=== PATIENT | female | born 1945 | race Caucasian/White ===

== ENCOUNTER → 2017-01-07 | Outpatient (CLI) | payer MEDICARE | LOC: MC.RAD 09:20 | DX: Z12.31 Encounter for screening mammogram for malignant neoplasm of breast (principal) ==

== ENCOUNTER → 2017-05-20 | Outpatient (CLI) | payer MEDICARE | LOC: COL.VAS 09:20 | DX: I08.2 Rheumatic disorders of both aortic and tricuspid valves (principal); I31.3 Pericardial effusion (noninflammatory); R06.00 Dyspnea, unspecified; R07.9 Chest pain, unspecified ==

== ENCOUNTER → 2018-01-09 | Outpatient (CLI) | payer MEDICARE ==
[~2018-01-09] MED LIST: ASPIRIN E.C. 8181 MG PO; DESYREL 100MG100 MG PO; DICLOFENAC SOD2.5 ML TOP; EPA FISH OIL1 SGL; FIORICET 325 MG1 TA1 PO; FOSAMAX 70MG TA70 MG PO; LEXAPRO 10MG10 MG PO; MOBIC15 MG PO; NATURAL E400 IU PO; NITROSTAT0.4 MG/TAB SL; OCUVITE1 TA1 PO; TOPROL XL 25MG25 MG PO; VITAMIN B COMPL1 SGL PO; VITAMIN D 400400 IU PO; WELCHOL 625MG625 MG PO; XANAX 0.5MG0.5 MG PO; ZANTAC 150MG T150 MG PO; ZYRTEC 10MG10 MG PO
== END ==
LOC: MC.RAD 09:34
DX: Z12.31 Encounter for screening mammogram for malignant neoplasm of breast (principal)

== ENCOUNTER 2018-08-04 07:38 | Outpatient (CLI) | payer MEDICARE ==
[~2018-08-04] VITALS: Ht 172.7 cm; Wt 71.8 kg
[2018-08-04 08:40] VITALS: BP 118/62; PULSE 68; TEMP 98.2
[2018-08-04] MEDS ORDERED: CLEOCIN HCL300 MG PO (09:22)
--- NOTE | 2018-08-04 09:49 | NUR ---
Procedure complete. Discharge instructions given.
[2018-08-04 09:50] VITALS: BP 120/63; PULSE 62; TEMP 98
--- NOTE | 2018-08-04 09:55 | NUR ---
Transferred to private car by brandon
== END 2018-08-04 09:56 | disposition home or self-care (01) ==
LOC: COL.CAR 07:38
DX: I47.1 Supraventricular tachycardia (principal); Z82.49 Family history of ischemic heart disease and other diseases of the circulatory system; E78.5 Hyperlipidemia, unspecified; J44.9 Chronic obstructive pulmonary disease, unspecified; I27.20 Pulmonary hypertension, unspecified; K21.9 Gastro-esophageal reflux disease without esophagitis; J30.9 Allergic rhinitis, unspecified; F41.9 Anxiety disorder, unspecified; G43.909 Migraine, unspecified, not intractable, without status migrainosus; Z88.5 Allergy status to narcotic agent; Z88.1 Allergy status to other antibiotic agents; Z88.8 Allergy status to other drugs, medicaments and biological substances; Z88.0 Allergy status to penicillin; Z88.2 Allergy status to sulfonamides; Z88.7 Allergy status to serum and vaccine; Z91.040 Latex allergy status; Z79.82 Long term (current) use of aspirin

== ENCOUNTER → 2019-01-20 | Outpatient (CLI) | payer MEDICARE ==
[~2019-01-20] MED LIST changes: +CLEOCIN HCL300 MG PO
== END ==
LOC: MC.RAD 09:01
DX: Z12.31 Encounter for screening mammogram for malignant neoplasm of breast (principal)

== ENCOUNTER → 2020-01-25 | Outpatient (CLI) | payer MEDICARE | LOC: MC.RAD 09:59 | DX: Z12.31 Encounter for screening mammogram for malignant neoplasm of breast (principal); Z00.00 Encounter for general adult medical examination without abnormal findings ==

== ENCOUNTER 2020-11-02 07:52 | Day surgery (SDC) | payer MEDICARE, OTHER ==
[~2020-11-02] VITALS: Ht 172.8 cm; Wt 77.0 kg
[2020-11-02] VITALS (8 sets, daily range): BP systolic 115–154; BP diastolic 56–81; PULSE 64–72; TEMP 98.4
[~2020-11-02 07:52] MED LIST changes: -EPA FISH OIL1 SGL; +EPA FISH OIL1 SGL PO
[2020-11-02] MEDS ORDERED: PROAIR HFA0.09 MG/AC IH (08:40)
[2020-11-02] MEDS ORDERED: SINGULAIR 110 MG/TAB PO (08:41)
[2020-11-02] MEDS ORDERED: 00186-0370-20 IH (08:42)
--- NOTE | 2020-11-02 09:52 | NUR ---
SEE MERGE DOCUMENTATION FOR MEDICATION ADMINISTRATION TIMES AND INTRA/POST PROCEDURE SEDATION ASSESSMENTS.
--- NOTE | 2020-11-02 10:10 | NUR ---
Report from Boaz ALEJANDRA. Transferred from Shoe Worker by bed. Alert and oriented, denies pain and needs at this time. VSS
[2020-11-02] MEDS ORDERED: CLEOCIN HCL300 MG PO (11:13)
--- NOTE | 2020-11-02 11:33 | NUR ---
INT discontinued intact. Discharge instructions given
--- NOTE | 2020-11-02 11:40 | NUR ---
Transferred to private car by brandon
== END 2020-11-02 11:40 | disposition home or self-care (01) ==
LOC: COL.CAR 07:52
DX: I49.1 Atrial premature depolarization (principal); R00.2 Palpitations; J44.9 Chronic obstructive pulmonary disease, unspecified; K21.9 Gastro-esophageal reflux disease without esophagitis; E78.5 Hyperlipidemia, unspecified; G43.909 Migraine, unspecified, not intractable, without status migrainosus; I25.10 Atherosclerotic heart disease of native coronary artery without angina pectoris; I47.1 Supraventricular tachycardia; I27.20 Pulmonary hypertension, unspecified; E78.2 Mixed hyperlipidemia; F41.9 Anxiety disorder, unspecified; Z20.822 Contact with and (suspected) exposure to COVID-19; Z88.8 Allergy status to other drugs, medicaments and biological substances; Z88.5 Allergy status to narcotic agent; Z82.49 Family history of ischemic heart disease and other diseases of the circulatory system; Z88.1 Allergy status to other antibiotic agents; Z88.2 Allergy status to sulfonamides; Z91.040 Latex allergy status; Z79.82 Long term (current) use of aspirin; Z79.899 Other long term (current) drug therapy; Z80.9 Family history of malignant neoplasm, unspecified; Z45.09 Encounter for adjustment and management of other cardiac device; Z83.3 Family history of diabetes mellitus
CPT/HCPCS: C1764; J2250; J3010; J3370; J7050

== ENCOUNTER → 2021-02-02 | Outpatient (CLI) | payer MEDICARE ==
[~2021-02-02] MED LIST changes: +00186-0370-20 IH; +B COMPLEX #11 TA1 PO; +CAPACET 325 MG-1 CAP PO; +DICLOZOR1 EACH TP; +LEXAPRO20 MG PO; +NEXIUM 24HR20 M1 PO; +PROAIR HFA0.09 MG/AC IH; +SINGULAIR 110 MG/TAB PO; +TOPROL XL100 MG PO; +ZYRTEC5 MG PO; +[UNRECOGNIZED DRUG - OTHER] PO
== END ==
LOC: MC.RAD 10:13
DX: Z12.31 Encounter for screening mammogram for malignant neoplasm of breast (principal)

== ENCOUNTER 2021-05-25 05:13 | Inpatient (IN) | payer MEDICARE ==
[~2021-05-25] VITALS: Ht 175.3 cm; Wt 78.5 kg
[~2021-05-25 05:13] MED LIST changes: -B COMPLEX #11 TA1 PO; -CAPACET 325 MG-1 CAP PO; -DICLOZOR1 EACH TP; -LEXAPRO20 MG PO; -NEXIUM 24HR20 M1 PO; -TOPROL XL100 MG PO; -ZYRTEC5 MG PO; -[UNRECOGNIZED DRUG - OTHER] PO
[2021-05-25 05:29] LABS: BASO # 0.1 K/mm3 (0.0-0.2); BASO % 0.7 % (0.0-2.0); EOS # 0.3 K/mm3 (0.0-0.7); EOS % 4.2 % (0-4.0); GRAN # 4.5 K/mm3 (1.4-6.5); GRAN % 60.4 % (42.2-75.2); HEMATOCRIT 38.3 % (37.0-47.0); HEMOGLOBIN 12.6 g/dl (12.5-16.0); LYMPH # 1.9 K/mm3 (1.2-3.4); LYMPH % 25.8 % (20.0-51.0); MEAN CELL VOLUME 90 fl (80.0-100.0); MEAN CORPUSCULAR HEMOGLOBIN 30 pg (27.0-31.0); MEAN CORPUSCULAR HGB CONC 33 g/dl (33.0-37.0); MEAN PLATELET VOLUME 8.1 fl (7.4-10.4); MONO # 0.6 K/mm3 (0.1-0.6); MONO % 8.2 % (1.7-9.3); PLATELET COUNT 251 K/mm3 (130-400); RED BLOOD COUNT 4.24 M/mm3 (4.10-5.30); REDCELL DISTRIBUTION WIDTH-CV 12.7 % (11.5-14.5)
[2021-05-25 05:45] LABS: ALANINE AMINOTRANSFERASE 25 U/L (0-55); ALBUMIN 3.6 gm/dL (3.4-4.8); ALKALINE PHOSPHATASE 93 U/L (40-150); ANION GAP 8 mmol/L (7-16); AST,SGOT 20 U/L (5-34); BILIRUBIN,TOTAL 0.4 mg/dL (0.2-1.2); BLOOD UREA NITROGEN 13 mg/dL (10-20); CALCIUM 9.1 mg/dL (8.4-10.2); CARBON DIOXIDE 23 mmol/L (23-31); CHLORIDE 108 mmol/L (98-107); CREATINE KINASE 56 U/L (29-168); CREATININE, serum 0.75 mg/dL (0.57-1.11); GLUCOSE 104 mg/dL (70-99); POTASSIUM 4.2 mmol/L (3.5-4.5); SODIUM 139 mmol/L (136-145); TOTAL PROTEIN 6.8 gm/dL (6.2-8.1)
[2021-05-25 06:02] LABS: TROPONIN-I < 0.010 ng/mL (0.00-0.033)
[2021-05-25] MEDS ORDERED: TOPROL XL100 MG PO (06:39)
[2021-05-25] MEDS ORDERED: [UNRECOGNIZED DRUG - OTHER] PO (06:47)
[2021-05-25] MEDS ORDERED: NEXIUM 24HR20 M1 PO (06:48)
--- NOTE | 2021-05-25 16:54 | NUR ---
RECEIVED REPORT FROM [place] PETERS.
--- NOTE | 2021-05-25 19:12 | NUR ---
PT WAS ADMITTED TO UNIT, ORIENTED TO ROOM. ADMISSION INTAKE AND ASSESSMENT COMPLETED. PT DENIES ANY NEEDS. WILL CONTINUE TO MONITOR.
[2021-05-25 21:26] VITALS: BP 128/65; PULSE 66; TEMP 98.5
[2021-05-25] MEDS ORDERED: B COMPLEX #11 TA1 PO (22:08)
[2021-05-25] MEDS ORDERED: DICLOZOR1 EACH TP (22:13)
[2021-05-25] MEDS ORDERED: ZYRTEC5 MG PO (22:24)
--- NOTE | 2021-05-25 22:36 | NUR ---
AT 2230 THIS NURSE REVIEWED THE ALREADY COMPLETED MED REC FROM PREVIOUS SHIFT WITH PT. THIS NURSE AND PT REVIEWED ANY POSSIBLE DISCEPANCIES, THIS NURSE PLACED A COPY OF THE PT'S MED REC IN CHART; WHICH WAS LAST UPDATED FEBRUARY [id number].
--- NOTE | 2021-05-25 22:41 | NUR ---
AT ABOUT 1945 DR. RUEDA INPUT WRITTEN NOTES TO PT'S CHART, THIS NURSE REVIEWED AND VERBALIZED UNDERSTANDING. ALL ORDERS INPUT INTO COMPUTER. THIS NURSE WILL ENSURE TO RELAY TO DAYSHIFT FOREIGN COLLECTION CLERK OF AFOREMENTIONED.
[2021-05-25 23:13] VITALS: BP 130/69; PULSE 68; TEMP 98.5
[2021-05-26 03:10] VITALS: BP 137/68; PULSE 72; TEMP 98.9
[2021-05-26] MEDS ORDERED: CAPACET 325 MG-1 CAP PO (04:51)
[2021-05-26] MEDS ORDERED: WELCHOL 625MG625 MG PO (04:52)
[2021-05-26] MEDS ORDERED: LEXAPRO20 MG PO (04:52)
[2021-05-26] MEDS ORDERED: DESYREL 100MG100 MG PO (04:52)
[2021-05-26] MEDS ORDERED: MOBIC15 MG PO (04:53)
[2021-05-26] MEDS ORDERED: TOPROL XL100 MG PO (04:53)
--- NOTE | 2021-05-26 05:07 | NUR ---
PT HAD UNEVENTFUL NIGHT THIS SHIFT, GAIT REMAINS UNSTEADY, PT REMAINS COGNITIVELY AND VERBALLY COHERENT, A/OX4, 02 ROOM AIR. PT DENIES PAIN,N,V,D, CONSTIPATION. I&O NOTED AND RECORDED. PT REMAINS NPO OF 0000. POC DISCUSSED WITH PT AT BEGINNING OF SHIFT. PT VERBALIZES UNDERSTANDING. ALL NEEDS MET THIS NIGHT. CALL LIGHT WITHIN REACH.
[2021-05-26 08:00] VITALS: BP 144/74; PULSE 74; TEMP 98.8
[2021-05-26 13:05] VITALS: BP 155/73; PULSE 82; TEMP 98.9
[2021-05-26 13:17] LABS: CSF APPEARANCE CLEAR; CSF COLOR COLORLESS
[2021-05-26 13:18] LABS: CSF RBC < 1 /mm3 (0-0)
[2021-05-26 14:15] LABS: CSF MONONUCLEAR 92 % (70-100); CSF POLYMORPHONUCLEAR 8 % (0-6)
--- NOTE | 2021-05-26 15:10 | NUR ---
Nurse Staff [facility] met with patient to discuss discharge plan. Patient's friend, Tash is at bedside. Patient lives alone in [facility] and sees Dr. Peterson for primary care. Patient obtains medications from [facility] with no difficulties and does not use any DME. Patient is normally independent with ADLS and plans to return home upon discharge. MANJIT discussed Home Health services with patient who is interested in [facility]. Patient states she has completed [facility]PO[facility] which designates her friends, Sourav and Ani Diamond. Patient thinks Dr. Peterson's office has a copy of DPOA-HC. MANJIT contacted Elisa at [facility] and requested a copy. Elisa advised they have a copy and will fax it over. After intake, MANJIT was advised by RN that patient will be transferred to another hospital.
[2021-05-26 16:17] VITALS: BP 157/83; PULSE 81; TEMP 98
--- NOTE | 2021-05-26 17:41 | NUR ---
Patient ambulating in the room with cane, steady on feet. Has increased anxiety r/t information from the doctor. A&Ox4. Reports a headache. Bandaid to back, CDI. No further needs expressed. Call light within reach
[2021-05-26 19:15] VITALS: BP 167/80; PULSE 84; TEMP 98.2
[2021-05-26 23:24] VITALS: BP 148/76; PULSE 72; TEMP 98.7
[2021-05-27 04:07] VITALS: BP 136/74; PULSE 73; TEMP 98.2
--- NOTE | 2021-05-27 06:05 | NUR ---
PT HAD UNEVENTFUL NIGHT,NO CHANGES OVERNIGHT, ALL NEEDS MET AT THIS TIME. PT EXPRESSES NO ADDITIONAL NEEDS. CALL LIGHT WITHIN REACH.
[2021-05-27 07:02] LABS: BASO % 0.4 % (0.0-2.0); EOS % 0.5 % (0-4.0); GRAN # 6.1 K/mm3 (1.4-6.5); GRAN % 72.4 % (42.2-75.2); HEMATOCRIT 40.2 % (37.0-47.0); HEMOGLOBIN 13.1 g/dl (12.5-16.0); LYMPH # 1.5 K/mm3 (1.2-3.4); LYMPH % 17.3 % (20.0-51.0); MEAN CELL VOLUME 91 fl (80.0-100.0); MEAN CORPUSCULAR HEMOGLOBIN 30 pg (27.0-31.0); MEAN CORPUSCULAR HGB CONC 33 g/dl (33.0-37.0); MEAN PLATELET VOLUME 8.3 fl (7.4-10.4); MONO # 0.7 K/mm3 (0.1-0.6); MONO % 8.6 % (1.7-9.3); PLATELET COUNT 284 K/mm3 (130-400); RED BLOOD COUNT 4.41 M/mm3 (4.10-5.30)
[2021-05-27 07:17] LABS: CALCIUM 9.4 mg/dL (8.4-10.2); CREATININE, serum 0.7 mg/dL (0.57-1.11); POTASSIUM 4.5 mmol/L (3.5-4.5)
[2021-05-27 07:36] VITALS: BP 149/72; PULSE 72; TEMP 98
[2021-05-27] MEDS ORDERED: XANAX 0.5MG0.5 MG PO (07:58)
[2021-05-27 11:58] VITALS: BP 147/84; PULSE 82; TEMP 98.4
[2021-05-27 16:51] VITALS: BP 154/77; PULSE 75; TEMP 98.3
[2021-05-27 19:50] VITALS: BP 146/78; PULSE 74; TEMP 98.6
[2021-05-27 22:57] VITALS: BP 194/71; PULSE 70; TEMP 98.9
[2021-05-28 04:23] VITALS: BP 141/78; PULSE 71; TEMP 98.8
--- NOTE | 2021-05-28 05:42 | NUR ---
PT HAD UNEVENTFUL NIGHT, CONTINUES TO REPORT DISCOMFORT AND ACHING TO NECK, MEDICAITON ADMINISTERED ORDERED WITH SOME RELIEF. ICE PACK PLACED ON LUMBAR PUNCTURE, SWELLING MINIMALLY RESOLVED. ALL NEEDS MET THIS NIGHT. CALL LIGHT WITHIN REACH.
[2021-05-28 06:57] LABS: BASO # 0.1 K/mm3 (0.0-0.2); BASO % 0.7 % (0.0-2.0); EOS # 0.1 K/mm3 (0.0-0.7); EOS % 1.5 % (0-4.0); GRAN # 5.9 K/mm3 (1.4-6.5); HEMATOCRIT 38.7 % (37.0-47.0); HEMOGLOBIN 12.7 g/dl (12.5-16.0); LYMPH # 1.8 K/mm3 (1.2-3.4); LYMPH % 20.8 % (20.0-51.0); MEAN CELL VOLUME 92 fl (80.0-100.0); MEAN CORPUSCULAR HEMOGLOBIN 30 pg (27.0-31.0); MEAN CORPUSCULAR HGB CONC 33 g/dl (33.0-37.0); MEAN PLATELET VOLUME 8.5 fl (7.4-10.4); MONO # 0.8 K/mm3 (0.1-0.6); MONO % 9.2 % (1.7-9.3); PLATELET COUNT 288 K/mm3 (130-400); REDCELL DISTRIBUTION WIDTH-CV 12.9 % (11.5-14.5)
[2021-05-28 07:07] LABS: CALCIUM 9.4 mg/dL (8.4-10.2); CREATININE, serum 0.7 mg/dL (0.57-1.11); POTASSIUM 4.3 mmol/L (3.5-4.5)
[2021-05-28 07:13] VITALS: BP 147/75; PULSE 64; TEMP 98.3
--- NOTE | 2021-05-28 13:26 | NUR ---
Rick faxed over referral to [facility]. Rick faxed over DME form/ setup DME order with [facility] for a cane. Home medical deliverd the cane to the pt and Sw watched them give it to the pt.
[2021-05-29 16:15] LABS: HSV 2 DNA PCR QUAL Not Detected (())
== END 2021-05-28 12:15 | disposition home health service (06) | DRG 552 ==
LOC: COL.ER 05:13 → MEDICAL 07:45
PROVIDERS: Emergency Medicine; Physician Assistant; Psychiatry & Neurology Neurology; ADMIT Student in an Organized Health Care Education/Training Program
PROC: 009U3ZX Drainage of Spinal Canal, Percutaneous Approach, Diagnostic (ICD-10-PCS; principal; 2021-05-25)
DX: M50.221 Other cervical disc displacement at C4-C5 level (principal); I47.1 Supraventricular tachycardia; E78.00 Pure hypercholesterolemia, unspecified; F41.9 Anxiety disorder, unspecified; I27.20 Pulmonary hypertension, unspecified; D32.1 Benign neoplasm of spinal meninges; Z88.0 Allergy status to penicillin; Z88.2 Allergy status to sulfonamides; Z79.82 Long term (current) use of aspirin
CPT/HCPCS: 99222-AI; 99233-AI; 99239; A9585; J0780; J1650; J2405; J7030; Q9967

== ENCOUNTER → 2021-10-04 | Outpatient (CLI) | payer MEDICARE, MEDICAID ==
[~2021-10-04] MED LIST changes: +B COMPLEX #11 TA1 PO; +CAPACET 325 MG-1 CAP PO; +DICLOZOR1 EACH TP; +LEXAPRO20 MG PO; +NEXIUM 24HR20 M1 PO; +TOPROL XL100 MG PO; +ZYRTEC5 MG PO; +[UNRECOGNIZED DRUG - OTHER] PO
== END ==
LOC: MHCPAIN 08:07
DX: M47.812 Spondylosis without myelopathy or radiculopathy, cervical region (principal); M54.12 Radiculopathy, cervical region; R51.9 Headache, unspecified; G89.29 Other chronic pain
CPT/HCPCS: G0463

== ENCOUNTER → 2021-10-19 | Outpatient (CLI) | payer MEDICARE, MEDICAID | LOC: MHCPAIN 07:53 | DX: M47.812 Spondylosis without myelopathy or radiculopathy, cervical region (principal); M54.12 Radiculopathy, cervical region | CPT/HCPCS: J0461; J1100; Q9967 ==

== ENCOUNTER → 2021-11-07 | Outpatient (CLI) | payer MEDICARE, MEDICAID | LOC: MHCPAIN 08:51 | DX: M54.2 Cervicalgia (principal); M25.512 Pain in left shoulder; M54.12 Radiculopathy, cervical region; M47.812 Spondylosis without myelopathy or radiculopathy, cervical region | CPT/HCPCS: G0463 ==

== ENCOUNTER → 2022-02-06 | Outpatient (CLI) | payer MEDICARE, MEDICAID | LOC: MC.RAD 09:16 | DX: Z12.31 Encounter for screening mammogram for malignant neoplasm of breast (principal) ==

== ENCOUNTER → 2024-03-16 | Outpatient (CLI) | payer MEDICARE, MEDICAID ==
[~2024-03-16] MED LIST changes: +ROCALTROL0.5 MCG PO; +RT ADVAIR HFA 1112 G IH; +VITAMIN E 400 U4001 PO; +ZANAFLEX 4MG TAB4 MG PO
== END ==
LOC: MC.RAD 05:53
DX: Z12.31 Encounter for screening mammogram for malignant neoplasm of breast (principal)